=== PATIENT | female | born 1985 ===

== ENCOUNTER → 2025-05-27 | Outpatient (CLI) | payer BC | LOC: LAB 07:38 → LAB SHORT 07:38 | DX: Z87.59 Personal history of other complications of pregnancy, childbirth and the puerperium (principal) | CPT/HCPCS: 84702 ==

== ENCOUNTER → 2025-07-31 | Outpatient (CLI) | payer BC | LOC: LAB 06:40 | DX: E66.3 Overweight (principal); Z13.29 Encounter for screening for other suspected endocrine disorder ==